=== PATIENT | female | born 1985 | race Caucasian/White ===

== ENCOUNTER → 2016-08-11 | Outpatient (CLI) | payer BC ==
[~2016-08-11] MED LIST: BIRTH CONTROL PILL PO; DEPO-PROVER150 MG/ML INJ; EC-NAPROSYN500 MG PO; NORINYL; PERCOCET5/325 PO; PRENATAL VITAMI1 TA3 PO; PROTONIX PO
--- NOTE | ~2016-08-11 | US98 ---
[facility] A Service of [facility] RADIOLOGY TEXT RESULTS PATIENT: MAYA CASTILLO LOCATION: SGUS : 83 UNIT #: [id number] AGE: [address]: Smith Lowry MD SEX: F ORDER DR: [id number] [address] [address] [id number] P MR#: [id number] Acc #: [id number] NAME: MAYA CASTILLO : 1985 SEX: F STUDY DATE/TIME: 08/11/2016 14:58 UNIT: SGUS ROOM: STUDY DESCRIPTION: US Pelvic Non-OB Complete Attending Physician: Smith Lowry M.D. Ordering Physician: Smith Lowry M.D. Primary Care Physician: Smith Lowry M.D. MEDICAL IMAGING REPORT This report is preliminary unless electronic signature is present. EXAM Pelvic ultrasound, 08/11 INDICATION Low back pain and bloating for 1 month. TECHNIQUE Transabdominal and transvaginal imaging is performed of the pelvis in multiple planes. Transvaginal imaging is performed for better evaluation of the endometrium and adnexa. COMPARISON STUDIES No comparison. FINDINGS The uterus measures about 11.2 x 5.1 x 4.5 cm. The endometrial stripe is normal at 3 mm. Myometrial echotexture is homogeneous. Both ovaries are normal and demonstrate perfusion by Doppler. No adnexal masses are seen. There is no free fluid. IMPRESSION Normal pelvic ultrasound. Dictated by... Shiv Ingram Jr., M.D. THIS IS AN ELECTRONICALLY VERIFIED REPORT Shiv Ingram Jr., M.D. at 08/12/2016 4:47 PM RLK/dorota [facility] A Service [facility] RADIOLOGY TEXT RESULTS PATIENT: MAYA CASTILLO LOCATION: SGUS : 83 UNIT #: [id number] AGE: [address]: Smith Lowry MD SEX: F ORDER DR: TD: 08/12/2016 12:19 JOB #: [id number] MEDICAL IMAGING REPORT Page 1 of 1
== END | disposition home or self-care (01) ==
LOC: SGUS 14:56
DX: R10.30 Lower abdominal pain, unspecified (principal)
CPT/HCPCS: 76830; 76856